=== PATIENT | female | born 1940 | race Caucasian/White ===

== ENCOUNTER → 2018-06-17 12:36 | Outpatient (CLI) | payer MEDICARE, OTHER, SELFPAY ==
--- NOTE | 2018-06-17 | DI.ECHO.S_ITS ---
[facility] +---------+ [facility] +---------+ : : [address] : [address] [place] : : : : [id number] : : : : Phone: [phone] +---------+ Echocardiogram Report + + :Name: ALYSSA VALADEZ Study Date: 06/17/2018 Height: 62 in : :[facility] Exam Location: [facility] Weight: 147 lb : : Gender: Female BSA: 1.7 m2 : :: 1940 Age: 77 yrs BP: 140/80 mmHg: :Reason For Study: Dyspnea : :Ordering Physician: Juaquin : :[place] Performed By: Bonny Page : + + Interpretation Summary The left ventricle is normal in size, wall thickness, and systolic function without any focal wall motion abnormalities with the ejection fraction visually estimated to be 55-60%. Assessment of diastolic parameters indicates a relaxation abnormality of the left ventricle, consistent with normal filling pressures. The right ventricle is normal in size and function. The right ventricular systolic pressure is estimated to be at least 24 mmHg assuming a right atrial pressure of 3 mm Hg. The left atrium is moderately dilated. There is no significant valvular heart disease. The ascending aorta is mildly enlarged. Procedure: A two-dimensional transthoracic echocardiogram with color flow and Doppler was performed. The study quality was technically adequate. There is no prior echocardiogram noted for this patient. The patient was in normal sinus rhythm during the exam. Left Ventricle: The left ventricle is normal in size, wall thickness, and systolic function without any focal wall motion abnormalities. The ejection fraction is estimated to be 55-60%. Assessment of diastolic parameters indicates a relaxation abnormality of the left ventricle, consistent with normal filling pressures. Right Ventricle: The right ventricle is normal in size and function. Atria: The left atrium is moderately dilated. Right atrial size is normal. The interatrial septum is intact with no evidence for an atrial septal defect. There is no Doppler evidence for an interatrial shunt. Mitral Valve: There is mild mitral annular calcification. The mitral valve leaflets appear normal. There is no evidence of stenosis, fluttering, or prolapse. There is trace mitral regurgitation. Aortic Valve: The aortic valve is trileaflet. The aortic valve is slightly calcified. The aortic valve opens well. No aortic regurgitation is present. Tricuspid Valve: The tricuspid valve is normal in structure and function. There is a trace or physiologic amount of tricuspid regurgitation. The right ventricular systolic pressure is estimated at to be at least 24 mmHg assuming a right atrial pressure of 3 mm Hg. Pulmonic Valve: The pulmonic valve is not well visualized. There is trace pulmonic regurgitation. There is no significant valvular heart disease. Great Vessels: The aortic root is normal size. The ascending aorta is mildly enlarged. The aortic arch is normal in size. The pulmonary is not well visualized. The IVC is of normal diameter and collapses greater than 50% with a sniff. This suggests a low right atrial pressure of 3 mm Hg. Pericardium/ Pleura There is no pericardial effusion. There is no pleural effusion. MMode/2D Measurements & Calculations LVIDd: 4.4 cm LVOT diam: 2.0 cm LVIDs: 2.9 cm Ao root diam: 3.3 cm FS: 34.9 % asc Aorta Diam: 3.6 cm EPSS: 0.35 cm Ao Arch Diam (Prox Trans): 2.0 cm IVSd: 0.63 cm LVPWd: 0.78 cm LV samayoa. diameter/BSA (cm/m^2): 2.6 LV sys. diameter/BSA (cm/m^2): 1.7 LA A2 area: 21.7 cm2 RA long axis: 5.0 cm LA A4 area: 19.1 cm2 RA area: 16.4 cm2 LA length (vol): 4.9 cm RA vol: 45.5 ml LA vol: 71.8 ml RA : 27.1 ml/m2 LA vol index: 42.8 ml/m2 IVC diam: 1.5 cm RVD1 (basal): 3.2 cm Doppler Measurements & Calculations Ao V2 max: 121.6 cm/sec LVOT Max Michael: 83.0 cm/sec Ao V2 mean: 74.8 cm/sec LV V1 max P.8 mmHg Ao max P.9 mmHg LV V1 VTI: 18.3 cm Ao mean P.7 mmHg FRANCO(I,D): 2.1 cm2 Ao V2 VTI: 26.1 cm FRANCO(V,D): 2.1 cm2 sev ratio: 0.70 FRANCO indexed to BSA (cm^2/m^2): 1.3 MV E max michael: 58.0 cm/sec TR max michael: 228.7 cm/sec MV A max michael: 75.2 cm/sec TR max P.9 mmHg MV E/A: 0.77 PA V2 max: 64.3 cm/sec Med Peak E' Michael: 4.9 cm/sec PA V2 mean: 46.7 cm/sec E/E' med: 11.9 PA mean P.93 mmHg Lat Peak E' Michael: 5.6 cm/sec PA Accel Time: 0.13 sec E/E' lat: 10.4 E/e' average: 11.2 MV dec time: 0.20 sec MV P1/2t: 62.2 msec MV P1/2t max michael: 58.3 cm/sec MVA(P1/2t): 3.5 cm2 Reading Physician:ANYA
== END ==
PROVIDERS: Visit Provider Specialist
DX: R06.00 Dyspnea, unspecified (principal)
CPT/HCPCS: 93306

== ENCOUNTER → 2020-07-22 13:29 | Outpatient (CLI) | payer MEDICARE, OTHER, SELFPAY ==
--- NOTE | 2020-07-22 | DI.ECHO.S_ITS ---
[facility] +---------+ [facility] +---------+ : : [address] [place] : : : : [id number] : : : : Phone: [phone] +---------+ Echocardiogram Report + + :Name: ALYSSA VALADEZ Study Date: 07/22/2020 Height: 62 in : :[facility] Weight: 145 lb : : Gender: Female BSA: 1.7 m2 : :: 1940 Age: 79 yrs BP: 160/82 mmHg: :Reason For Study: Palpitations : :Ordering Physician: FRANCK Lewis : :FABRICIO BARTON Performed By: Lee Ann Sullivan : :Referring: FABRICIO LEHMAN : + + Interpretation Summary The left ventricle is normal in size. The ejection fraction is estimated to be 55-60%. There has been no significant change in LV EF since the previous exam. The right ventricle is normal in size and function. There is mild tricuspid regurgitation. Pulmonary artery pressures cannot be estimated because of the lack of a measurable TR jet velocity but the IVC suggests a CVP of around 3 mmHg. Procedure: A two-dimensional transthoracic echocardiogram with color flow and Doppler was performed. The study quality was technically adequate. Comparison is made with the echocardiogram of 06/17/2018. The patient was in sinus bradycardia with heart rates between 55-57 bpm during the exam. Left Ventricle: The left ventricle is normal in size. Proximal septal thickening is noted. There is no echo evidence for significant left ventricular outflow tract obstruction. There is no thrombus. The ejection fraction is estimated to be 55-60%. There has been no significant change since the previous exam. There are no focal wall motion abnormalities. Diastolic parameters suggest a relaxation abnormality of the left ventricle, consistent with probable normal filling pressures. Right Ventricle: The right ventricle is normal in size and function. Atria: Both atria are normal in size. There is no Doppler evidence for an interatrial shunt. Mitral Valve: There is mild mitral annular calcification. The mitral valve is normal in structure and function. The mitral valve is normal in structure but abnormal in function. There is trace mitral regurgitation. Aortic Valve: The aortic valve is trileaflet. The aortic valve opens well. There is no aortic valve stenosis. No aortic regurgitation is present. Tricuspid Valve: The tricuspid valve is normal in structure and function. Pulmonary artery pressures cannot be estimated because of the lack of a measurable TR jet velocity but the IVC suggests a CVP of around 3 mmHg. There is mild tricuspid regurgitation. Pulmonic Valve: The pulmonic valve is not well seen, but is grossly normal. There is no pulmonic valvular regurgitation. Great Vessels: The aortic root is normal size. The ascending aorta is mildly enlarged. There has been no significant change since the previous study. The IVC is of normal diameter and collapses greater than 50% with a sniff. This suggests a low right atrial pressure of 3 mm Hg. Pericardium/ Pleura There is no pericardial effusion. There is no pleural effusion. MMode/2D Measurements & Calculations LVIDd: 5.3 cm LVOT diam: 2.0 cm LVIDs: 3.5 cm Ao root diam: 3.3 cm FS: 33.6 % asc Aorta Diam: 3.5 cm EPSS: 0.58 cm Ao Arch Diam (Prox Trans): 2.1 cm IVSd: 0.75 cm LVPWd: 0.89 cm LV samayoa. diameter/BSA (cm/m^2): 3.2 LV sys. diameter/BSA (cm/m^2): 2.1 LA A2 area: 14.7 cm2 RA long axis: 4.5 cm LA A4 area: 17.3 cm2 RA area: 14.1 cm2 LA length (vol): 5.4 cm RA vol: 37.0 ml LA vol: 40.3 ml RA : 22.2 ml/m2 LA vol index: 24.2 ml/m2 IVC diam: 1.5 cm RVD1 (basal): 3.2 cm TAPSE: 1.8 cm Doppler Measurements & Calculations Ao V2 max: 116.0 cm/sec LVOT Max Michael: 88.3 cm/sec Ao V2 mean: 83.4 cm/sec LV V1 max P.1 mmHg Ao max P.4 mmHg LV V1 VTI: 19.1 cm Ao mean P.1 mmHg FRANCO(I,D): 2.3 cm2 Ao V2 VTI: 25.1 cm FRANCO(V,D): 2.3 cm2 sev ratio: 0.76 FRANCO indexed to BSA (cm^2/m^2): 1.4 MV E max michael: 61.2 cm/sec PA V2 max: 59.6 cm/sec MV A max michael: 74.2 cm/sec PA V2 mean: 36.7 cm/sec MV E/A: 0.82 PA mean P.65 mmHg Med Peak E' Michael: 7.3 cm/sec PA pr(Accel): 8.8 mmHg E/E' med: 8.4 Lat Peak E' Michael: 6.9 cm/sec E/E' lat: 8.9 E/e' average: 8.7 MV dec time: 0.20 sec SV(LVOT): 58.0 ml Reading Physician:05:28 PM
== END ==
PROVIDERS: PCP Physician Assistant; Referring Provider Physician Assistant; Visit Provider Nurse Practitioner
DX: I07.1 Rheumatic tricuspid insufficiency (principal); I77.89 Other specified disorders of arteries and arterioles; R00.2 Palpitations
CPT/HCPCS: 93306